=== PATIENT | male | born 1995 | race Caucasian/White ===

== ENCOUNTER 2022-02-08 16:42 | Emergency (ER) | payer OTHER ==
[~2022-02-08] VITALS: Ht 175.3 cm; Wt 80.3 kg
--- NOTE | 2022-02-08 17:40 | NUR ---
BIBS C/O NAUSEA SINCE STARTED AT 1345 TODAY, -VOMITING, -DIARRHEA. VITALS ARE WITHIN NORMAL LIMITS. AWAITING MD WALKER.
[2022-02-08] MEDS ORDERED: ONDANSETRON HCL/PF 4 MG/2 ML VIAL ONE (19:11)
[2022-02-08] MEDS: ONDANSETRON HCL/PF 4 MG/2 ML VIAL IVP ONE (19:21)
[2022-02-08] MEDS: IV NS 0.9% 1,000 ML BAG IV ONE (19:21)
[2022-02-08 19:52] LABS: BASOPHILS % (AUTO) 0.5 % (0.0-2.0); EOSINOPHILS % (AUTO) 0.7 % (0.0-6.0); HEMATOCRIT 42 % (39-51); HEMOGLOBIN 14.3 g/dL (13.5-17.5); LYMPHOCYTES # (AUTO) 1.9 K/uL (0.8-4.8); MEAN CORPUSCULAR HGB CONC 34 g/dl (31.0-36.0); MEAN CORPUSCULAR VOLUME 88 fL (80-96); MONOCYTES # (AUTO) 0.3 K/uL (0.1-1.30); MONOCYTES % (AUTO) 3.7 % (2.0-12.0); NEUTROPHILS # (AUTO) 5.1 K/uL (1.8-8.9); NEUTROPHILS % (AUTO) 69.1 % (43.0-81.0); PLATELET COUNT (AUTO) 195 K/uL (150-450); RED BLOOD CELL COUNT(AUTO) 4.78 MIL/uL (4.5-6.0); WHITE BLOOD COUNT (AUTO) 7.4 K/uL (4.3-11.0)
[2022-02-08 19:59] LABS: CALCIUM, SERUM 9.1 mg/dL (8.5-10.1); CARBON DIOXIDE 28 mmol/L (21-32); CHLORIDE 104 mmol/L (98-107); CREATININE 0.9 mg/dL (0.6-1.3); GLUCOSE 90 mg/dL (74-106); POTASSIUM 3.3 mmol/L (3.5-5.1); SODIUM SERUM 142 mmol/L (136-145); UREA NITROGEN, BLOOD 11 mg/dL (7-18)
--- NOTE | 2022-02-08 21:01 | NUR ---
URINE COLLECTED AND SENT TO LAB
[2022-02-08] MEDS ORDERED: POTASSIUM CHLORIDE 20 MEQ TAB.PRT.SR PO ONE (22:14)
[2022-02-08] MEDS ORDERED: POTASSIUM CHLORIDE 10 MEQ TABLET.SA ONE (22:15)
[2022-02-08 22:17] VITALS: BP 136/80
--- NOTE | 2022-02-08 22:17 | NUR ---
Patient discharged to home in stable condition. Written and verbal after care instructions given. Patient verbalizes understanding of instruction.
[2022-02-08] MEDS: POTASSIUM CHLORIDE 20 MEQ TAB.PRT.SR PO ONE (22:20)
== END 2022-02-08 22:22 | disposition home or self-care (01) ==
LOC: ER 16:45
DX: R42 Dizziness and giddiness (principal); R11.0 Nausea; R94.31 Abnormal electrocardiogram [ECG] [EKG]; Z88.0 Allergy status to penicillin
CPT/HCPCS: 99284; 96374; 96361; 93005; 85025; 80048; 36415; 84484 ×2; 80307; J2405; J7030